=== PATIENT | female | born 1980 | race Caucasian/White ===

== ENCOUNTER 2019-01-20 18:45 | Emergency (ER) | payer OTHER ==
[~2019-01-20] VITALS: Ht 177.8 cm; Wt 102.1 kg
[~2019-01-20 18:45] MED LIST: FEROSUL325 ( 65 ) PO; FOLIC ACID1 MG PO; LO/OVRAL-281 TAB
== END 2019-01-20 19:42 | disposition home or self-care (01) ==
LOC: ER 18:45
DX: I16.0 Hypertensive urgency (principal); I10 Essential (primary) hypertension

== ENCOUNTER 2020-01-19 07:45 | Inpatient (IN) | payer OTHER ==
[~2020-01-19] VITALS: Ht 175.3 cm; Wt 104.3 kg
== END 2020-01-26 10:10 | disposition home or self-care (01) | DRG 743 ==
LOC: O/R 01-25 06:15 → OB/GYN 01-25 06:15 → O/R 01-25 07:45 → SURH 01-25 19:57 → OB/GYN 01-25 20:36
PROVIDERS: ADMIT Obstetrics & Gynecology Gynecologic Oncology
PROC: 0UT74ZZ Resection of Bilateral Fallopian Tubes, Percutaneous Endoscopic Approach (ICD-10-PCS; 2020-01-25)
PROC: 0UT94ZZ Resection of Uterus, Percutaneous Endoscopic Approach (ICD-10-PCS; principal; 2020-01-25 10:15)
DX: D25.1 Intramural leiomyoma of uterus (principal); N85.2 Hypertrophy of uterus; N72 Inflammatory disease of cervix uteri; N83.8 Other noninflammatory disorders of ovary, fallopian tube and broad ligament

== ENCOUNTER 2020-02-03 20:57 | Emergency (ER) | payer OTHER ==
[~2020-02-03] VITALS: Ht 175.3 cm; Wt 102.1 kg
== END 2020-02-03 23:13 | disposition home or self-care (01) ==
LOC: ER 20:57
DX: N39.0 Urinary tract infection, site not specified (principal); B95.2 Enterococcus as the cause of diseases classified elsewhere